=== PATIENT | female | born 1985 | race Caucasian/White ===

== ENCOUNTER 2020-11-08 01:12 | Observation (INO) | payer OTHER ==
[~2020-11-08 01:12] MED LIST: CLEOCIN HCL150 MG PO; LODINE CAP 300300 MG PO; PRENATAL VITAM1 EAC8 PO
[2020-11-08 02:28] LABS: HEMOGLOBIN 13.5 gm/dl (12.3-15.3); RED BLOOD COUNT 4.44 M/UL (4.00-5.10); WHITE BLOOD COUNT 12.4 K/UL (4.5-11.0)
[2020-11-08 03:27] LABS: BUN/CREATININE RATIO 19 (0-10)
[2020-11-08 09:47] LABS: HEMOGLOBIN 12.3 gm/dl (12.3-15.3); RED BLOOD COUNT 4.1 M/UL (4.00-5.10); WHITE BLOOD COUNT 13.3 K/UL (4.5-11.0)
== END 2020-11-08 13:34 | disposition home or self-care (01) ==
LOC: ER1 01:12 → CDU 05:52
PROVIDERS: Family Medicine; Physician Assistant; ADMIT Obstetrics & Gynecology
DX: O20.0 Threatened abortion (principal); O10.911 Unspecified pre-existing hypertension complicating pregnancy, first trimester; O99.331 Smoking (tobacco) complicating pregnancy, first trimester; F17.210 Nicotine dependence, cigarettes, uncomplicated; O99.341 Other mental disorders complicating pregnancy, first trimester; F32.9 Major depressive disorder, single episode, unspecified; Z88.0 Allergy status to penicillin; Z88.1 Allergy status to other antibiotic agents; Z3A.10 10 weeks gestation of pregnancy; Z20.822 Contact with and (suspected) exposure to COVID-19
CPT/HCPCS: 36415; 76817; 80053; 81001; 84702; 85025; 86850; 86900; 86901; 87086; G0378; G0463; U0002

== ENCOUNTER 2020-12-22 00:08 | Emergency (ER) | payer OTHER ==
[2020-12-22 03:07] LABS: RED BLOOD COUNT 4.09 M/UL (4.00-5.10); WHITE BLOOD COUNT 8.8 K/UL (4.5-11.0)
[2020-12-22 03:31] LABS: BUN/CREATININE RATIO 12 (0-10)
== END 2020-12-22 04:00 | disposition home or self-care (01) ==
LOC: ER1 00:08
PROVIDERS: Physician Assistant
DX: N93.9 Abnormal uterine and vaginal bleeding, unspecified (principal); F17.210 Nicotine dependence, cigarettes, uncomplicated; Z88.0 Allergy status to penicillin; Z20.822 Contact with and (suspected) exposure to COVID-19
CPT/HCPCS: 80053; 84703; 85025; 86850; 86900; 86901; 99284; U0002

== ENCOUNTER 2021-01-11 19:36 | Observation (INO) | payer OTHER ==
[~2021-01-11] VITALS: Ht 165.1 cm; Wt 81.6 kg
[2021-01-11 21:25] LABS: HEMOGLOBIN 12.1 gm/dl (12.3-15.3); RED BLOOD COUNT 4.19 M/UL (4.00-5.10); WHITE BLOOD COUNT 13.7 K/UL (4.5-11.0)
[2021-01-11 21:45] LABS: BUN/CREATININE RATIO 16 (0-10)
[2021-01-12 01:06] LABS: WHITE BLOOD COUNT 14.5 K/UL (4.5-11.0)
[2021-01-12 01:08] LABS: RED BLOOD COUNT 3.51 M/UL (4.00-5.10)
[2021-01-12 01:09] LABS: HEMOGLOBIN 9.9 gm/dl (12.3-15.3)
[2021-01-12 08:49] LABS: HEMOGLOBIN 9.4 gm/dl (12.3-15.3)
--- NOTE | 2021-01-12 16:18 | NUR ---
TRIED TO NOTIFY DR. ENGEL OF PATIENT HAVING A BLOOD PRESSURE READING OF 90/41, RECHECKED AND HAD A BLOOD PRESSURE READING OF 105/44. 3 CALL ATTEMPTS MADE AND MESSAGE LEFT FOR CALL BACK. CALLED SECOND CALL PREFERENCE TO THE OFFICE AND LEFT A MESSAGE WITH THE VICE PRESIDENT FOR [facility] AT [facility] TO HAVE MAREN TO CALL ME BACK SOON POSSIBLE. WILL CONTINUE TO MONITOR PATIENT.
[2021-01-12 16:34] LABS: HEMOGLOBIN 9.3 gm/dl (12.3-15.3); RED BLOOD COUNT 3.25 M/UL (4.00-5.10)
[2021-01-12 16:37] LABS: WHITE BLOOD COUNT 9.9 K/UL (4.5-11.0)
[2021-01-12] MEDS ORDERED: MEDROXYPROGESTE10 MG PO (16:52)
[2021-01-12] MEDS ORDERED: FERROUS SULFAT325 MG PO (16:52)
--- NOTE | 2021-01-12 17:29 | NUR ---
MADE AWARE OF PATIENTS BLOOD PRESSURE, NO NEW ORDERS AT THIS TIME.
== END 2021-01-12 18:43 | disposition home or self-care (01) ==
LOC: ER1 19:36 → MED SURG 4 01-12 01:04 → CDU 01-12 01:04 → MED SURG 4 01-12 04:04
PROVIDERS: Emergency Medicine; Obstetrics & Gynecology; Physician Assistant; ADMIT Obstetrics & Gynecology
DX: N93.9 Abnormal uterine and vaginal bleeding, unspecified (principal); R93.89 Abnormal findings on diagnostic imaging of other specified body structures; D64.89 Other specified anemias; Z88.1 Allergy status to other antibiotic agents; Z88.0 Allergy status to penicillin; Z20.822 Contact with and (suspected) exposure to COVID-19
CPT/HCPCS: 36415; 76830; 80053; 81001; 84702; 85014; 85018; 85025; 85027; 86850; 86900; 86901; 87077; 87086; 87186; 96374; 99285; G0378; J2405; Q9967; U0002